=== PATIENT | female | born 1955 | race Caucasian/White ===

== ENCOUNTER → 2017-01-08 | Outpatient (CLI) | payer BC ==
--- NOTE | 2017-01-15 07:05 | MM ---
Reason for exam: screening (asymptomatic). Last mammogram was performed 1 year and 11 months ago. History: Patient is postmenopausal and had first child at age 31. Physical Findings: A clinical breast exam by your physician is recommended on an annual basis and results should be correlated with mammographic findings. MG Screening Mammo w CAD Bilateral CC and MLO view(s) were taken. Prior study comparison: February 01, 2015, mammogram, performed at [facility]. November 09, 2013, mammogram, performed at [facility]. There is chronic nodularity in the left breast. No significant changes when compared with prior studies. ASSESSMENT: Benign, BI-RAD 2 RECOMMENDATION: Routine screening mammogram of both breasts in 1 year.
== END | disposition home or self-care (01) ==
LOC: RADMAMWWP 09:06
PROVIDERS: ATTEND Obstetrics & Gynecology
DX: Z12.31 Encounter for screening mammogram for malignant neoplasm of breast (principal)

== ENCOUNTER → 2019-04-01 | Outpatient (CLI) | payer BC, OTHER ==
--- NOTE | 2019-04-01 12:06 | XR ---
EXAMINATION TYPE: XR shoulder complete RT DATE OF EXAM: 04/01/2019 CLINICAL HISTORY: pain TECHNIQUE: Three views of the right shoulder are obtained. COMPARISON: None FINDINGS: There is no acute fracture/dislocation evident. The acromioclavicular and glenohumeral ruben int spaces appear within normal limits. The visualized ribs are intact and unremarkable. IMPRESSION: 1. There is no acute fracture or dislocation. ICD 10 NO FRACTURE, INITIAL EVALUATION
--- NOTE | 2019-04-01 12:11 | XR ---
EXAMINATION TYPE: XR cervical spine limited DATE OF EXAM: 04/01/2019 CLINICAL HISTORY: pain TECHNIQUE: 3 views of the cervical spine are submitted. COMPARISON: None. FINDINGS: There is satisfactory in alignment without evidence of acute fracture or dislocation. The pre-vertebral soft tissue appears within normal limits.Moderate degenerative changes noted. The C1-C 2 articulation is unremarkable on the open mouth view. IMPRESSION: No acute fracture or dislocation is seen in the cervical spine.
== END | disposition home or self-care (01) ==
LOC: RADXRYALE 11:37
PROVIDERS: ATTEND Internal Medicine
DX: M54.2 Cervicalgia (principal); M25.511 Pain in right shoulder
CPT/HCPCS: 72040

== ENCOUNTER → 2020-03-02 | Outpatient (CLI) | payer BC ==
--- NOTE | 2020-03-02 13:20 | US ---
EXAMINATION TYPE: US abdomen complete DATE OF EXAM: 03/02/2020 COMPARISON: NONE CLINICAL HISTORY: R10.11 Right upper quadrant pain. EXAM MEASUREMENTS: Liver Length: 11 cm Gallbladder Wall: .2 cm CBD: .5 cm Spleen: 5.9 cm Right Kidney: 9.6 x 3.4 x 4.6 cm Left Kidney: 8.3 x 3.6 x 3.2 cm Pancreas: wnl Liver: wnl Gallbladder: wnl Evidence for sonographic Caruso's sign: No CBD: wnl Spleen: wnl Right Kidney: wnl Left Kidney: wnl Upper IVC: wnl Abd Aorta: wnl The visualized liver is homogenous. The intrahepatic portion of the IVC and visualized abdominal aor ta are within normal limits. There is no evidence of cholelithiasis. Common bile duct is unremarkab le. The visualized portions of the pancreas are homogenous. The spleen is unremarkable. Kidneys ar e symmetric and free of hydronephrosis. No renal lesions are seen on images saved. IMPRESSION: No acute findings are evident.
== END | disposition home or self-care (01) ==
LOC: RADUSWWP 10:32
PROVIDERS: ATTEND Internal Medicine
DX: R10.11 Right upper quadrant pain (principal)
CPT/HCPCS: 76700

== ENCOUNTER → 2020-04-24 | Outpatient (CLI) | payer MEDICARE, OTHER ==
--- NOTE | 2020-04-24 09:18 | NM ---
EXAMINATION TYPE: NM hepatobiliary w EF DATE OF EXAM: 04/24/2020 COMPARISON: NONE HISTORY: R10.11 RUQ pain TECHNIQUE: After the intravenous administration of 4.06 mCi Tc 99m Mebrofenin hepatobiliary scintigra phy is performed. Immediate images post injection. FINDINGS: There is satisfactory initial accumulation of tracer by the liver. The gallbladder is visualized wit hin 14 minutes. The small bowel activity is noted within 34 minutes. At one hour 8 ounces of oral e nsure plus is given to mimic CCK and gallbladder ejection fraction is calculated at 38 %, in the norm al range. Therefore there is no scintigraphic evidence of cystic or common bile duct obstruction to suggest acute cholecystitis or gallbladder dyskinesia. IMPRESSION: Exam is within normal limits.
== END | disposition home or self-care (01) ==
LOC: RADNMMAIN 06:42
PROVIDERS: ATTEND Internal Medicine
DX: R10.11 Right upper quadrant pain (principal)
CPT/HCPCS: 78226; A9537

== ENCOUNTER → 2020-05-10 | Outpatient (CLI) | payer BC, MEDICARE ==
--- NOTE | 2020-05-15 11:35 | MM ---
Reason for exam: screening (asymptomatic). Last mammogram was performed 3 years and 4 months ago. History: Patient is postmenopausal and had first child at age 31. Physical Findings: A clinical breast exam by your physician is recommended on an annual basis and results should be correlated with mammographic findings. MG 3D Screening Mammo W/Cad Bilateral CC and MLO view(s) were taken. Prior study comparison: January 08, 2017, bilateral MG screening mammo w CAD. February 01, 2015, mammogram, performed at [facility]. There are scattered fibroglandular densities. There is chronic nodularity bilaterally. No significant changes when compared with prior studies. ASSESSMENT: Benign, BI-RAD 2 RECOMMENDATION: Routine screening mammogram of both breasts in 1 year.
== END | disposition home or self-care (01) ==
LOC: RADMAMWWP 15:05
PROVIDERS: ATTEND Internal Medicine
DX: Z12.31 Encounter for screening mammogram for malignant neoplasm of breast (principal)
CPT/HCPCS: 77063; 77067

== ENCOUNTER → 2020-06-01 | Outpatient (CLI) | payer MEDICARE ==
--- NOTE | 2020-06-01 12:16 | CT ---
EXAMINATION TYPE: CT abdomen pelvis w con DATE OF EXAM: 06/01/2020 COMPARISON: NONE HISTORY: 65-year-old female R63.4, abnormal Weight loss (25 pounds) TECHNIQUE: Contiguous axial scanning of the abdomen and pelvis following administration of 100 ml Iso tena 300 IV contrast. Delayed images through the kidneys and coronal/sagittal reconstructions perform ed. CT DLP: 390.1 mGycm Automated exposure control for dose reduction was used. FINDINGS: Heart normal size without pericardial effusion. Lung bases clear without pleural effusion. No focal liver lesion or biliary ductal dilatation. Portal venous system is patent. Gallbladder, adrenal glands, kidneys, spleen with hilar splenule, pancreas appear within normal limit s. No dilated small bowel, free fluid, or free air. Paucity of intra-abdominal fat limits assessment for lymphadenopathy. No obvious mesenteric or retrop eritoneal lymphadenopathy seen. Normal appendix. Mild to moderate stool burden. No pericolonic inflammatory change seen. There is some focal thickening along the anterior bladder base measuring 2.7 cm wide by 1.9 cm AP. A punctate density, possible calcification on either side of this thickening is noted, axial image 69. Sagittal image 59. Uterus surgically absent. Neither ovary is visualized. No abnormal fluid collectio n in the pelvis or pelvic lymphadenopathy. Bones: Degenerated levoconvex scoliosis. Hypertrophic facet arthropathy mid to lower lumbar spine. Le ft lateral spondylolisthesis at L2-L3, L3-L4, L4-L5 secondary to the scoliosis. IMPRESSION: 1. FOCAL THICKENING ALONG THE ANTERIOR BLADDER BASE MEASURING 2.7 X 1.9 CM. CORRELATE WITH URINALYSIS , URINE CYTOLOGY, AND DIRECT VISUALIZATION INDICATED TO EXCLUDE A UROTHELIAL LESION HERE. GIVEN A PUNCTATE DENSITY ON EITHER SIDE OF THIS THICKENING, QUERY ANY HISTORY OF PRIOR SURGERY TO THE PELVIC FLOOR. 2. OTHERWISE, NO SUSPICIOUS LYMPHADENOPATHY OR MASS IDENTIFIED IN THE ABDOMEN OR PELVIS.
[2020-06-01 17:40] LABS: Gliadin AB IgA, Deaminated NEGATIVE (NEGATIVE); Gliadin AB IgA, Unit <0.2 U/mL; Gliadin AB IgG, Deaminated NEGATIVE (NEGATIVE)
== END | disposition home or self-care (01) ==
LOC: RADCTMAIN 09:54
PROVIDERS: ATTEND Internal Medicine Gastroenterology
DX: N32.89 Other specified disorders of bladder (principal); R14.0 Abdominal distension (gaseous)
CPT/HCPCS: 82565; 84520; 83516 ×4; 74177; 36415; Q9967

== ENCOUNTER 2020-06-14 08:07 | Day surgery (SDC) | payer MEDICARE ==
[2020-06-12 17:27] VITALS: BMI 21.1
[~2020-06-14 08:07] MED LIST: LACTATED RINGERS 1,000 ML IV SCH; LIDOCAINE 1% (10MG/ML) FOR IV START INTRADERMA PRN
[2020-06-14 08:33] VITALS: TEMP 98.8
[2020-06-14] MEDS ORDERED: PROPOFOL 10 MG/ML 20 ML VIAL IV ONE (08:45)
[2020-06-14] MEDS ORDERED: LIDOCAINE 1% INJ 10MG/ML (20 ML MDV) ONE (08:45)
--- NOTE | 2020-06-14 08:55 | P.PCN ---
Date of Procedure: 06/14/20 Procedure(s) Performed: BRIEF HISTORY: Patient is a 65-year-old, pleasant, white female scheduled for an upper endoscopy as a part of evaluation of epigastric pain, early satiety, abdominal bloating and progressive weight loss of 30 pounds in the last 6 months duration.. PROCEDURE PERFORMED: Esophagogastroduodenoscopy. PREOPERATIVE DIAGNOSIS: Epigastric pain/early satiety and abdominal bloating and progressive weight loss. IV sedation per anesthesia. PROCEDURE: After informed consent was obtained, the patient was brought into the endoscopy unit. IV sedation was administered by Anesthesia under continuous monitoring. Initially the Olympus GIF-140 video endoscope was inserted into the mouth. Esophagus intubated without any difficulty. It was gradually advanced into the stomach and duodenum and carefully examined. The bulb and the second part of the duodenum appeared normal. Biopsies were done from the duodenum to rule out celiac disease. The scope at this time was withdrawn to the stomach, adequately insufflated with air, and upon careful examination, mucosa of the antrum, had mild gastritis and biopsies were done from this area. The body, cardia and the fundus appeared normal. The scope was then withdrawn into the esophagus. The GE junction was located at 39 cm from the incisors. The esophagus appeared normal. There were no erosions or ulcerations seen , biopsies were done from the distal esophagus and the patient tolerated the procedure well. IMPRESSION: 1. Mild antral gastritis. 2. No evidence of esophagitis or peptic ulcer disease. RECOMMENDATIONS: The findings of this examination were discussed with the patient as well as a family. She was advised to follow with the biopsy results. She will be seen in office in 2 weeks..
[2020-06-14 08:59] VITALS: RESP 16
[2020-06-14 09:21] VITALS: PULSE 62
[2020-06-14 09:35] VITALS: BP 117/74
== END 2020-06-14 10:15 | disposition home or self-care (01) ==
LOC: ORWHC2ENDO 08:07
PROVIDERS: ATTEND Internal Medicine Gastroenterology
DX: K29.50 Unspecified chronic gastritis without bleeding (principal); R41.3 Other amnesia; Z79.890 Hormone replacement therapy; Z79.899 Other long term (current) drug therapy
CPT/HCPCS: 43239; 88305; 88342; J2001; J2704